=== PATIENT | female | born 2000 | race Caucasian/White ===

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

== ENCOUNTER 2019-02-24 08:37 | Emergency (ER) | payer OTHER ==
[~2019-02-24] VITALS: Ht 162.6 cm; Wt 54.4 kg
[~2019-02-24 08:37] MED LIST: HYDROCODONE-AP1 EAC6 PO; IBUPROFEN 800800 M1 PO; SPRINTEC1 EACH PO
[2019-02-24 08:46] VITALS: BP 114/73
[2019-02-24 08:52] LABS: URINE BILIRUBIN NEGATIVE (Negative); URINE BLOOD 2+ (Negative); URINE CLARITY CLEAR; URINE COLOR YELLOW; URINE GLUCOSE-RANDOM NEGATIVE (Negative); URINE KETONES NEGATIVE (Negative); URINE LEUKOCYTES-REFLEX 1+ (Negative); URINE NITRITE-REFLEX NEGATIVE (Negative); URINE PROTEIN NEGATIVE (Negative)
[2019-02-24 09:03] LABS: BACTERIA-REFLEX 1-9 Few /HPF (None Seen); CASTS None Seen /LPF (None Seen); CRYSTALS None Seen /LPF (None Seen); MUCUS 0-3 Light strn/LPF (None Seen); SQUAMOUS 4-10 Moderate /LPF (0-3); URINE RBC 3-10 Few /HPF (0-2); URINE WBC-REFLEX 6-15 Few /HPF (0-5)
[2019-02-24] MEDS ORDERED: ZOFRAN ODT4 MG SUBLING (09:05)
[2019-02-24] MEDS ORDERED: MACROBID 100 M100 M1 PO (09:05)
== END 2019-02-24 09:14 | disposition home or self-care (01) ==
LOC: M.ERS 08:37
PROVIDERS: Family Medicine
DX: N39.0 Urinary tract infection, site not specified (principal); R11.2 Nausea with vomiting, unspecified

== ENCOUNTER 2019-08-06 17:41 | Emergency (ER) | payer OTHER ==
[~2019-08-06] VITALS: Ht 170.2 cm; Wt 56.7 kg
[~2019-08-06 17:41] MED LIST changes: +MACROBID 100 M100 M1 PO; +ZOFRAN ODT4 MG SUBLING
[2019-08-06] MEDS ORDERED: ENBRACE HR SOF1 EACH PO (17:59)
[2019-08-06 18:39] LABS: INFLUENZA A ANTIGEN Negative (Negative); INFLUENZA B ANTIGEN Negative (Negative)
[2019-08-06] MEDS ORDERED: DELSYM COU30 MG/5 M1 PO (21:27)
[2019-08-06] MEDS ORDERED: ZPAK PO (21:27)
[2019-08-06 21:56] VITALS: BP 132/74
== END 2019-08-06 22:00 | disposition home or self-care (01) ==
LOC: M.ERS 17:41
PROVIDERS: Nurse Practitioner Family
DX: O99.512 Diseases of the respiratory system complicating pregnancy, second trimester (principal); J06.9 Acute upper respiratory infection, unspecified; F17.200 Nicotine dependence, unspecified, uncomplicated; Z3A.17 17 weeks gestation of pregnancy

== ENCOUNTER 2019-11-09 01:05 | Emergency (ER) | payer OTHER ==
[~2019-11-09] VITALS: Ht 170.2 cm; Wt 61.2 kg
[~2019-11-09 01:05] MED LIST changes: +DELSYM COU30 MG/5 M1 PO; +ENBRACE HR SOF1 EACH PO; +ZPAK PO
[2019-11-09 01:15] VITALS: BP 133/89
== END 2019-11-09 01:54 | disposition short-term general hospital (02) ==
LOC: M.ERS 01:05
DX: O46.93 Antepartum hemorrhage, unspecified, third trimester (principal); O99.333 Smoking (tobacco) complicating pregnancy, third trimester; Z3A.31 31 weeks gestation of pregnancy

== ENCOUNTER 2020-12-20 08:03 | Emergency (ER) | payer OTHER, MEDICAID ==
[~2020-12-20] VITALS: Ht 170.2 cm; Wt 54.4 kg
[2020-12-20] MEDS ORDERED: BIRTH CONTROL PILL (08:11)
[2020-12-20 08:54] VITALS: BP 105/60
== END 2020-12-20 08:51 | disposition home or self-care (01) ==
LOC: M.ERS 08:03
DX: J02.9 Acute pharyngitis, unspecified (principal)